=== PATIENT | male | born 1935 | race Caucasian/White ===

== ENCOUNTER 2021-03-29 12:07 | Emergency (ER) | payer OTHER, MEDICARE ==
[~2021-03-29] VITALS: Ht 167.6 cm; Wt 49.9 kg
[2021-03-29] MEDS ORDERED: NORVASC5 MG PO (14:15)
[2021-03-29 15:19] VITALS: BP 193/95
--- NOTE | 2021-03-30 06:51 | EKG ---
[facility] [place] [address] ELECTROCARDIOGRAM REPORT Name: THALIA ENG [facility] [id number] Admission: 03/29/21 Attend Phys: Discharge: 03/29/21 Date of : 39 Report #: [id number] [facility] ED Test Date: 2021-03-29 Test Time: 12:27:34 Pat Name: THALIA ENG Department: Room: Gender: [employer] Machine: MARIO : 1935 Requested By: Karla Wilson Order Number: [id number] MD: Altaf Thornton Measurements Intervals [place] Rate: 84 P: 75 TX: 208 QRS: -47 QRSD: 115 T: 103 QT: 395 QTc: 467 Interpretive Statements Sinus rhythm Incomplete left bundle branch block Probable left ventricular hypertrophy Anterior Q waves, possibly due to LVH No previous ECG available for comparison Electronically Signed On 03-30-2021 6:51:24 CDT by Altaf Thornton [email or web address] <ELECTRONICALLY SIGNED> By: Altaf Thornton MD, [facility] 03/30/21 [id number] D: 05/1226 26 Altaf Thornton MD, FACC /EPI
== END 2021-03-29 15:19 | disposition home or self-care (01) ==
LOC: ER 12:07
DX: I10 Essential (primary) hypertension (principal)